=== PATIENT | female | born 1995 ===

== ENCOUNTER 2016-06-04 00:15 | Emergency (ER) | payer SELFPAY ==
[2016-06-04 00:24] VITALS: RESP 16
--- NOTE | 2016-06-04 00:25 | EDPHY ---
H & P HPI/ROS: HPI CHIEF COMPLAINT: Alcohol intoxication HISTORY OF PRESENT ILLNESS: This patient 20-year-old female, denies any significant medical history except for depression, she presents to the emergency room from her private residence after she was in the bath for vomiting , her roommate became concerned. She tells me that she drank multiple shots of Tequila this evening she tells me she had a lot of liquor to drink. She does feel intoxicated alcohol. Denies any trauma. Upon arrival here the emergency room she is slurring her speech she smells of alcohol, she tells me she would just like to sleep. She tells me that she feels very intoxicated. Denies ingestion of anything else Past Medical History: Depression Past Surgical History: no significant surgical history Social History: Denies daily use of drugs, alcohol tobacco products, does endorse drinking alcohol this evening Family History: Noncontributory ROS REVIEW OF SYSTEMS: A comprehensive 10 point review of systems is otherwise negative aside from elements mentioned in the history of present illness. Exam Constitutional smells of alcohol, slurring speech, intoxicated, triage nursing summary reviewed, vital signs reviewed, sleepy Eyes normal conjunctivae and sclera, EOMI, PERRLA. HENT normal inspection, atraumatic, moist mucus membranes, no epistaxis, neck supple/ no meningismus, no raccoon eyes. Respiratory clear to auscultation bilaterally, normal breath sounds, no respiratory distress, no wheezing. Cardiovascular rate normal, regular rhythm, no murmur, no edema, distal pulses normal. Gastrointestinal soft, non-tender, no rebound, no guarding, normal bowel sounds, no distension, no pulsatile mass. Genitourinary no CVA tenderness. Musculoskeletal no midline vertebral tenderness, full range of motion, no calf swelling, no tenderness of extremities, no meningismus, good pulses, neurovascularly intact. Skin pink, warm, & dry, no rash, skin atraumatic. Neurologic awake, alert and oriented x 3, AAOx3, moves all 4 extremities equally, motor intact, sensory intact, CN II-XII intact, slurring speech, horizontal beating nystagmus consistent with acute alcohol intoxication Psychiatric normal mood/affect. Heme/Lymph/Immune no lymphadenopathy. Differential Diagnosis: Includes but is not limited to in a particular order acute alcohol intoxication, dehydration, electrolyte abnormality, nausea vomiting from acute alcohol intoxication Medical Decision Making: this patient has been given Zofran here in the emergency room will closely monitor for sobriety. Will check an alcohol level. Re-evaluation: 0243: Re-evaluation at this time patient is much more sober, clinically stable , no ataxic gait, not slurring his speech, cooperative. Ready for discharge. Her alcohol level here is 226. She is now much more sober and safe for discharge. Discharged to the [facility] Source: Patient, EMS Constitutional: Initial Vital Signs Heart Rate 94 06/04/16 00:21 Respiratory Rate 16 06/04/16 00:21 Blood Pressure 132/84 H 06/04/16 00:21 O2 Sat (%) 98 06/04/16 00:21 O2 Delivery Mode Room Air Allergies/Adverse Reactions: No Known Allergies Allergy (Unverified 06/04/16 00:26) Home Medications: Medication Instructions Recorded Unk Depression Med 06/04/16 Medical Decision Making - Data Points Laboratory Results: 06/04/16 00:25 Ethyl Alcohol 226 H mg/dL (0-10) Medications Given: Discontinued Medications Ondansetron HCl (Zofran) 4 mg IVP EDNOW ONE Stop: 06/04/16 00:40 Last Admin: 06/04/16 00:25 Dose: 4 mg Departure - Departure Disposition: Home, Routine, Self-Care Clinical Impression: Alcohol intoxication Qualifiers: Complication of substance-induced condition: uncomplicated Qualifier Code: ( F10.120) Alcohol abuse with intoxication, uncomplicated Condition: Good Instructions: Abuse of Alcohol (ED), Alcohol Intoxication (ED) Referrals: [facility] Hours [Outside] - As per Instructions Patient,NotPresent [Primary Care Provider] - As per Instructions
[2016-06-04] MEDS ORDERED: ONDANSETRON 4 MG/2 ML VIAL IVP ONE (00:39)
[2016-06-04 01:09] LABS: ETHANOL SERUM 226 mg/dL (0-10)
[2016-06-04 02:36] VITALS: O2SAT 96
[2016-06-04 04:09] VITALS: BP 122/74; PULSE 66; TEMP 97.9
== END 2016-06-04 04:08 | disposition home or self-care (01) ==
LOC: EDUNIT#
DX: F10.120 Alcohol abuse with intoxication, uncomplicated (principal)
CPT/HCPCS: 96374; G0480; J2405